=== PATIENT | female | born 1955 | race Caucasian/White ===

== ENCOUNTER → 2016-05-07 | Outpatient (CLI) | payer OTHER ==
--- NOTE | 2016-05-07 12:51 | XR ---
EXAMINATION TYPE: XR knee limited LT DATE OF EXAM: 05/07/2016 12:09 PM COMPARISON: NONE HISTORY: Knee pain TECHNIQUE: 2 view left knee FINDINGS: No acute fracture evident. Knee prosthesis is present. Small joint effusion may be present. IMPRESSION: 1. No acute osseous abnormality in the post knee replacement. 2. Small joint effusion may be present.
== END | disposition home or self-care (01) ==
LOC: RADXRMAIN 11:55
PROVIDERS: ATTEND Nurse Practitioner Adult Health
DX: M25.562 Pain in left knee (principal); Z96.652 Presence of left artificial knee joint

== ENCOUNTER → 2016-11-25 | Outpatient (CLI) | payer OTHER ==
--- NOTE | 2016-11-25 12:34 | MR ---
EXAMINATION TYPE: MR lumbar spine wo con DATE OF EXAM: 11/25/2016 COMPARISON: NONE HISTORY: radiculopathy lsp per order. Low back pain for years per patient. History of back surgery 20 06 per patient. TECHNIQUE: Multiplanar, multisequence imaging of the lumbar spine is performed without IV contrast. FINDINGS: Sagittal images of the lumbar spine show vertebral body heights to appear satisfactory. The re is subtle grade 1 anterolisthesis of L4 on L5. There is artifact from suspected artificial disc ma terial lumbosacral junction which has moderate to advanced narrowing. There is multilevel disc desicc ation with advanced disc space narrowing as well as moderate spurring and heterogeneous increased T1 and T2 signal consistent with Modic type II degenerative changes at L1-L2. Posterior disc herniation at this level as seen on sagittal images. The conus medullaris is normal in position and signal endin g at mid L1 level. Additional mild multilevel anterior spurring in the mid lumbar spine is present. T here is bridging osteophyte anteriorly at lumbosacral junction. Axial images at T12-L1 level shows mild facet degenerative changes otherwise appears within normal li mits. Axial images at L1-L2 level shows moderate broad-based posterior disc protrusion effacing anterior th ecal sac on axial image 23. There is artifact from presumed surgical change in the anterior inferior L1 endplate there is mild facet degenerative changes bilaterally. Bilateral neural foramina are paten t. Axial images at L2-L3 level are felt within normal limits. Axial images at L3-L4 level show mild right greater than left facet degenerative changes. Spinal abdias l is preserved. Bilateral neural foramina are patent. Axial images at L4-L5 level show artifact from left-sided fusion hardware. There is mild to moderate facet degenerative changes and ligamentum flavum hypertrophy with some effacement the posterior later al thecal sac on axial images 7 and 8. There is spondylolisthesis seen. Mild bilateral neural foramin al narrowing is present. Axial images at L5-S1 level show artifact from disc material. There is moderate to advanced facet art hropathy. There is artifact from left-sided fusion hardware. Spinal canal is preserved. Right-sided n eural foramen is patent. Left-sided evaluation is degraded by artifact. No suspicious retroperitoneal findings are seen. IMPRESSION: Postsurgical changes lumbosacral junction noted. There may have been prior surgery at inf erior anterior L1 endplate. There is subtle spondylolisthesis L4-L5. There is multilevel degenerative change most prominent L1-L2 level seen as detailed above.
== END | disposition home or self-care (01) ==
LOC: RADMRIMAIN 11:45
PROVIDERS: ATTEND Family Medicine
DX: M43.16 Spondylolisthesis, lumbar region (principal); M47.26 Other spondylosis with radiculopathy, lumbar region; Z98.890 Other specified postprocedural states
CPT/HCPCS: 72148

== ENCOUNTER → 2017-04-27 | Outpatient (CLI) | payer BC ==
--- NOTE | 2017-04-28 11:18 | MM ---
Reason for exam: screening (asymptomatic). Last mammogram was performed 1 year and 11 months ago. History: Patient is postmenopausal. Physical Findings: A clinical breast exam by your physician is recommended on an annual basis and results should be correlated with mammographic findings. MG Screening Mammo w CAD Bilateral CC and MLO view(s) were taken. Prior study comparison: June 10, 2015, bilateral MG screening mammo w CAD. June 06, 2014, bilateral MG screening mammo w CAD. There are scattered fibroglandular densities. There is no discrete abnormality. No significant changes when compared with prior studies. ASSESSMENT: Negative, BI-RAD 1 RECOMMENDATION: Routine screening mammogram of both breasts in 1 year.
== END | disposition home or self-care (01) ==
LOC: RADMAMWWP 12:01
PROVIDERS: ATTEND Family Medicine
DX: Z12.31 Encounter for screening mammogram for malignant neoplasm of breast (principal)
CPT/HCPCS: 77067

== ENCOUNTER → 2018-03-08 | Outpatient (CLI) | payer BC ==
--- NOTE | 2018-03-08 13:47 | CT ---
EXAMINATION TYPE: CT chest wo con DATE OF EXAM: 03/08/2018 COMPARISON: None HISTORY: Dyspnea. CT DLP: 754 mGycm, Automated exposure control for dose reduction was used. CONTRAST: Performed injected with 0 mL of Isovue 300. TECHNIQUE: Axial images were obtained at 5 mm thick sections. Reconstructed images are reviewed on Bubbli computer in the coronal plane. FINDINGS: Limited Portion of the thyroid visualized is normal. Mild nonspecific infiltrate is at the left apex There is a 0.5 cm density with ill-defined margins in the posterior right upper lobe. Series 4 image 17. Small linear area with spiculated margins is in the posterior right midlung superior segment lowe r lobe. Series 4 image 21. There is an ill-defined area of pneumonitis within the left lower lung fie ld. Series 4 image 23. Ill-defined pneumonitis changes in the posterior left lung. Series 4 image 28. No enlarged mediastinal or hilar adenopathy is evident. The ascending aorta diameter at the level o f the main pulmonary artery is 3.4 cm. The main pulmonary artery diameter at the bifurcation is 2.[address] sections are obtained through the upper abdomen. Abdomen is essentially unremarkable. IMPRESSIONS: 1. There is a 0.5 cm nodular type area within the posterior right lung. Short-term follow-up of this area is recommended with follow-up CT chest in 3 months. 2. Additional scattered areas of increased density which are nonspecific. Infectious etiologies, scar ring, neoplasm could be considered. Follow-up CT chest is recommended.
== END | disposition home or self-care (01) ==
LOC: RADCTMAIN 12:56
PROVIDERS: ATTEND Nurse Practitioner Adult Health
DX: R91.1 Solitary pulmonary nodule (principal); R91.8 Other nonspecific abnormal finding of lung field
CPT/HCPCS: 71250

== ENCOUNTER → 2018-05-04 | Outpatient (CLI) | payer BC ==
--- NOTE | 2018-05-06 08:54 | MM ---
Reason for exam: screening (asymptomatic). Last mammogram was performed 1 year ago. History: Patient is postmenopausal. Physical Findings: A clinical breast exam by your physician is recommended on an annual basis and results should be correlated with mammographic findings. MG Screening Mammo w CAD Bilateral CC and MLO view(s) were taken. Prior study comparison: April 27, 2017, bilateral MG screening mammo w CAD. June 10, 2015, bilateral MG screening mammo w CAD. There are scattered fibroglandular densities. No significant changes when compared with prior studies. ASSESSMENT: Negative, BI-RAD 1 RECOMMENDATION: Routine screening mammogram of both breasts in 1 year.
== END | disposition home or self-care (01) ==
LOC: RADMAMWWP 12:35
PROVIDERS: ATTEND Family Medicine
DX: Z12.31 Encounter for screening mammogram for malignant neoplasm of breast (principal)
CPT/HCPCS: 77067

== ENCOUNTER → 2018-09-27 | Outpatient (CLI) | payer BC ==
--- NOTE | 2018-09-27 12:04 | CONS ---
ABHI Arnold is a pleasant 63-year-old female patient who is a long-time BiPAP user. The patient was diagnosed of having obstructive sleep apnea more than 10 years ago. The last BiPAP titration was done on 10/27/2012 during which the patient was BiPAP titrated to a BiPAP pressure of 9/5 cm of water. Back then she was to weight around 216 pounds. The patient is coming in for reevaluation. Her machine is broken, stops working in the middle of the night and then she tells me that she is unable to go to sleep without her machine. She becomes quite symptomatic and she becomes fragmented while off the BiPAP therapy and she wakes up very tired and sleepy. As such, she is in need for a new machine. She is using a Mirage Quattro full-face mask. She is going to bed around 11 p.m., wakes up between 6 to 7 am in the morning. Her current Bruce Score is at 9, especially as she is unable to fully benefit from her BiPAP treatment. She drinks 2 cups of coffee in the morning. Her weight has been fluctuating, she was as high as 270 at one point, and she has lost some weight. No sleep paralysis. No hallucinations. No cataplexy. She is waking up with dry mouth. PAST MEDICAL HISTORY: 1. Obstructive sleep apnea. 2. Degenerative arthritis. 3. Chronic environmental allergies. 4. Acid reflux. 5. Irritable bladder. PAST SURGICAL HISTORY: Includes right knee replacement, left knee replacement, fusion of the lower lumbar spine, sinus reconstruction surgery and cholecystectomy. DRUG ALLERGIES: To MORPHINE. She has also got multiple allergies to WEEDS, DOGS, GRASS AND BIRCH TREES. SOCIAL HISTORY: Nonsmoker, no evidence alcohol. No history of IV drugs. The patient drinks only 2 caffeinated beverages on a daily basis. The patient also wakes up multiple times now that she is having difficulties with her BiPAP in the middle of the night. She sleeps on her side. She does not take any naps during the day. No history of any motor vehicle accident because of feeling drowsy or sleepy. FAMILY HISTORY: Negative for sleep apnea. REVIEW OF SYSTEMS: A 14-point review of system was done and positive findings are mentioned above in the history of present illness. She is currently experiencing excessive fatigue and sleepiness. She has snoring while off the BiPAP. She has no insomnia, no choking or gasping for air. No restlessness in the lower extremities, no sleepwalking or sleep talking. Her heartburn is well treated. No palpitation, no angina, no cough or sputum production. No anxiety or panic attacks. No sexual dysfunction. Weight has been fluctuating as mentioned above. PHYSICAL EXAMINATION: BP is 149/69, pulse 59, respirations 16, temperature 98.2 saturation 98% on room air. Height is 5, 5, weight is 231. BMI 38.4. Neck size is 17. Bruce Score is at 9. GENERAL APPEARANCE: Calm, comfortable. HEENT: Atraumatic, normocephalic. NECK: Supple. There is no JVD. No goiter or neck masses. Mallampati class 4. LUNGS: Clear to auscultation. HEART: Sounds regular rate and rhythm. Normal S1, S2. No S3, S4. No murmurs. ABDOMEN: Soft, nontender. No organomegaly. EXTREMITIES: No edema. No cyanosis or clubbing. NEUROLOGIC: Alert and oriented x3. No focal neurological deficits. PSYCHIATRIC: Negative for anxiety or depression. SKIN: Negative for any wounds or ulceration. IMPRESSION: 1. Obstructive sleep apnea, symptomatic, based on a malfunctioning BiPAP unit. Her last BiPAP titration was done in 2012. 2. Hypersomnia secondary to above. 3. Obesity with a body mass index of 38.4, up by around 16 pounds since her last evaluation in 2012. 4. Environmental allergies, chronic. 5. Degenerative arthritis. PLAN: 1. Encourage weight loss. 2. Ask the patient to come in for another BiPAP titration, she has failed CPAP therapy in the past. I would be ideal to get her a new BiPAP unit with a new mask interface. I offered her the Air Fit F20 full-face mask for now. 3. Implement good sleep hygiene measures. Will continue to follow. She will see me back after the BiPAP titration to assess her compliancy towards her new machine. MMODL / IJN: [id number] /
== END | disposition home or self-care (01) ==
LOC: SLEEP 09:59
PROVIDERS: ATTEND Internal Medicine Critical Care Medicine
DX: G47.33 Obstructive sleep apnea (adult) (pediatric) (principal); G47.10 Hypersomnia, unspecified; M19.90 Unspecified osteoarthritis, unspecified site; K21.9 Gastro-esophageal reflux disease without esophagitis; N32.89 Other specified disorders of bladder; T78.49XA Other allergy, initial encounter; E66.9 Obesity, unspecified; Z68.38 Body mass index [BMI] 38.0-38.9, adult; Z88.5 Allergy status to narcotic agent; Z99.89 Dependence on other enabling machines and devices
CPT/HCPCS: 99211

== ENCOUNTER → 2018-11-18 | Outpatient (CLI) | payer BC ==
--- NOTE | 2018-11-19 10:25 | CT ---
EXAMINATION TYPE: CT chest wo con DATE OF EXAM: 11/18/2018 COMPARISON: March 08, 2018 HISTORY: lung nodules CT DLP: 549.[address] of the chest was performed with lung and mediastinal window settings submitted. The la ck of contrast limits evaluation of the vascular, mediastinal and parenchymal structures including th e upper abdomen. LUNGS: Nodular groundglass infiltrates noted right upper lobe image 9 of 56 measuring 8.7 mm. Additio nal groundglass areas right upper lobe nonnodular in appearance. Nodular density right lower lobe pos teriorly image 15 measuring 1.3 cm. Groundglass nodular densities left upper lobe measuring 9.7 mm im age 17. Groundglass nodular densities within the region of the left upper lobe lingular segment measu ring up to 1.1 cm and 0.93 mm image 22. Additional area 1.1 cm left lower lobe image 26. These areas were all present previously and do not appear to have progressed. They may reflect areas of postinfla mmatory change. Continued follow-up however is advised six-month follow-up recommended. If felt clini liliam indicated PET/CT could be performed. MEDIASTINUM/MAY: Thoracic aorta is of normal caliber with limited evaluation given lack of contrast . The heart is not enlarged. No evidence for mediastinal mass. No lymph nodes greater than 1cm. UPPER ABDOMEN: No significant abnormality is seen. OTHER: No significant other abnormality. IMPRESSION: 1. Stable bilateral groundglass nodular infiltrates noted which are nonspecific. Continued follow-up is advised. If felt to be clinically indicated PET/CT could be performed.
== END | disposition home or self-care (01) ==
LOC: RADCTMAIN 16:29
PROVIDERS: ATTEND Family Medicine
DX: R91.8 Other nonspecific abnormal finding of lung field (principal)
CPT/HCPCS: 71250

== ENCOUNTER → 2019-02-07 | Outpatient (CLI) | payer BC ==
--- NOTE | 2019-02-07 15:24 | PN ---
PROGRESS NOTE Catalina is 63, coming in for a compliancy check. The patient has a BiPAP unit for symptomatic obstructive sleep apnea and the BiPAP is set at the pressure of 10/6 cm of water. Her main complaint is some increased dryness especially when she wakes up in the morning. She has brought up humidity up to 8 and despite that, she is encountering the same problem. Her temperature of the tubing set at 86 degrees Fahrenheit. Air flow compliancy, the patient remains extremely compliant with an average of 7.3 hours of BiPAP use A 14 per night. Indicated 35 L/minute. I would avoid the 540 rate is 14 with a minute ventilation of 7.5 L/minutes. The station is spontaneous cycling at 9/10. AHI is down 1.4. While on treatment. No complaints of BiPAP use for more than 4 hours is 100%. Current Slade Score is at 7. REVIEW OF SYSTEMS: A 14-point review of system was done. Positive findings are mentioned in history of present illness. No other new complaints otherwise for now. The patient's weight has been fluctuating on and off. No major weight gain or weight loss. No cataplexy, no falls, no head trauma. No anxiety, no depression. No claustrophobia. Her current vital signs are as follows: Her blood pressure is 145/77 pulse 70, respirations 16, temperature is 98.3, saturation 95% on room air. Weight is 240. Height is 5, 5. BMI 39. GENERAL APPEARANCE: Calm, comfortable head is atraumatic, normocephalic. NECK: Supple. No JVD. No goiter. LUNGS: Clear to auscultation. HEART: Heart sounds are regular rate and rhythm. Normal S1, S2. No murmurs. ABDOMEN: Soft, nontender. No organomegaly. EXTREMITIES: No edema. No cyanosis or clubbing. IMPRESSION: 1. Symptomatic obstruction-sleep apnea, currently on a BiPAP pressure of over 6 with excellent clinical response and compliance. 2. Dryness orally and nasally while on BiPAP treatment. 3. Chronic hypersomnia improved. 4. Obesity. 5. Degenerative arthritis. 6. Chronic environmental allergies. \. PLAN: 1. Continue BiPAP at same level of pressure. 2. Keep the humidity at 8. 3. Offer the patient a medium-size Air Fit F20 mask and this will hopefully improve the leak which is in the order of 35 L/minute. 4. If the patient continues to have dryness while on treatment. Will continue to follow. LUIS F / ROMARION: [id number] /
== END | disposition home or self-care (01) ==
LOC: SLEEP 13:20
PROVIDERS: ATTEND Internal Medicine Critical Care Medicine
DX: G47.33 Obstructive sleep apnea (adult) (pediatric) (principal); E66.9 Obesity, unspecified; M19.90 Unspecified osteoarthritis, unspecified site; Z68.39 Body mass index [BMI] 39.0-39.9, adult; J30.2 Other seasonal allergic rhinitis

== ENCOUNTER → 2019-12-01 | Outpatient (CLI) | payer BC ==
[2019-12-01 13:24] LABS: HCT 41.6 % (34.0-46.0); HGB 13.9 gm/dL (11.4-16.0); MCH 31.3 pg (25.0-35.0); MCHC 33.4 g/dL (31.0-37.0); MCV 93.9 fL (80.0-100.0); Platelet Count 193 k/uL (150-450); RBC 4.43 m/uL (3.80-5.40); RDW 12.8 % (11.5-15.5); WBC 7.6 k/uL (3.8-10.6)
[2019-12-01 13:25] LABS: Appearance,Urine Clear (Clear); Bilirubin,Urine Negative (Negative); Blood,Urine Negative (Negative); Color,Urine Light Yellow; Glucose,Urine (UA) Negative (Negative); Ketones,Urine Negative (Negative); Leukocyte Esterase,Urine Negative (Negative); Nitrite,Urine Negative (Negative); Protein,Urine Negative (Negative); Specific Gravity,Urine 1.007 (1.001-1.035); Urobilinogen,Urine <2.0 mg/dL (<2.0)
[2019-12-01 13:37] LABS: ALT 39 U/L (4-34); AST 34 U/L (14-36); African American GFR (CKD) >90 (>60 ml/min/1.73 sqM); Albumin 4.7 g/dL (3.5-5.0); Alkaline Phosphatase 70 U/L (38-126); Anion Gap 3 mmol/L; Blood Urea Nitrogen 14 mg/dL (7-17); Calcium 10.4 mg/dL (8.4-10.2); Carbon Dioxide 31 mmol/L (22-30); Chloride 104 mmol/L (98-107); Glucose 107 mg/dL (74-99); Non-African American GFR(CKD) >90 (>60 ml/min/1.73 sqM); Potassium 4.5 mmol/L (3.5-5.1); Sodium 138 mmol/L (137-145); Total Bilirubin 0.5 mg/dL (0.2-1.3); Total Protein 6.9 g/dL (6.3-8.2)
[2019-12-01 13:40] LABS: INR 0.9 (<1.2); Partial Thromboplastin Time 22.1 sec (22.0-30.0); Prothrombin Time 9.8 sec (9.0-12.0)
== END | disposition home or self-care (01) ==
LOC: LABPAT 12:13
PROVIDERS: ATTEND Orthopaedic Surgery
DX: Z01.818 Encounter for other preprocedural examination (principal); M16.11 Unilateral primary osteoarthritis, right hip; Z01.812 Encounter for preprocedural laboratory examination
CPT/HCPCS: 36415; 80053; 81003; 85027; 85610; 85730; 86850; 86900; 86901; 87070

== ENCOUNTER 2019-12-11 13:58 | Day surgery (SDC) | payer BC ==
[2019-12-06 16:16] VITALS: BMI 41.5
[~2019-12-11 13:58] MED LIST: ACETAMINOPHEN TAB 500 MG TAB PO ONE; DEXAMETHASONE SOD PHOSPHATE 10 MG/ML 1 ML VIAL IV ONE; GABAPENTIN 300 MG CAP PO ONE; HYDROcodone/APAP 5-325MG 1 EACH TAB PO PRN; HYDROmorphone 0.5 MG/0.5 ML SYRINGE IVP PRN; HYDROmorphone 1 MG/ML 1 ML SYRINGE IVP PRN; LACTATED RINGERS 1,000 ML IV SCH; MAGNESIUM HYDROXIDE 2,400 MG/10 ML CUP PO PRN; MELOXICAM 7.5 MG TAB PO ONE; MIDAZOLAM 2 MG/2 ML VIAL IV PRN; NALOXONE 0.4 MG/ML 1 ML VIAL IV PRN; ONDANSETRON 4 MG/2 ML VIAL IVP ONE; ONDANSETRON 4 MG/2 ML VIAL IVP PRN; ROPIVACAINE 246.25 MG, EPINEPHrine 0.5 MG, KETOROLAC 30 MG, cloNIDine HCL/PF 80 MCG, WA... MISCELLANE ONE; SCOPOLAMINE 1.5MG/72HR PATCH TRANSDERM ONE; TRANEXAMIC ACID 1,000 MG in SODIUM CHLORIDE 0.9% 100 ML IVPB ONE; diazePAM 5 MG TAB PO PRN; fentaNYL (PF) 50 MCG/ML 2 ML AMP IVP PRN; hydrOXYzine pamoate 25 MG CAP PO PRN
[2019-12-11] MEDS ORDERED: LIDOCAINE 1% (10MG/ML) FOR IV START INTRADERMA ONE (14:29)
[2019-12-11] MEDS ORDERED: HEPARIN SODIUM,PORCINE 10,000 UNIT/ML 1 ML VIAL ONE (15:01)
[2019-12-11] MEDS ORDERED: SUCCINYLCHOLINE CHLORIDE 100 MG/5 ML SYR IV ONE (15:01)
[2019-12-11] MEDS ORDERED: TRANEXAMIC ACID 1,000 MG/10 ML VIAL ONE (15:01)
[2019-12-11] MEDS ORDERED: HYDROmorphone (PF) 1 MG/ML ONE (15:01)
[2019-12-11] MEDS ORDERED: SODIUM CHLORIDE 0.9% 100 ML BAG ONE (15:01)
[2019-12-11] MEDS ORDERED: PROPOFOL 10 MG/ML 20 ML VIAL IV ONE (15:01)
[2019-12-11] MEDS ORDERED: fentaNYL (PF) 50 MCG/ML 2 ML AMP ONE (15:01)
[2019-12-11] MEDS ORDERED: MIDAZOLAM 2 MG/2 ML VIAL ONE (15:01)
[2019-12-11] MEDS ORDERED: LIDOCAINE 1% INJ 10MG/ML (20 ML MDV) ONE (15:01)
[2019-12-11] MEDS ORDERED: SODIUM CHLORIDE 0.9% IRRIG 1,000 ML BTL IRRIGATION ONE (15:01)
--- NOTE | 2019-12-11 16:17 | P.OP ---
Date of Procedure: 12/11/19 Preoperative Diagnosis: Severe osteoarthritis right hip Postoperative Diagnosis: Severe osteoarthritis right hip Procedure(s) Performed: Right total hip arthroplasty with a direct anterior approach Implants: [employer] nephew Polarstem size 6 standard [employer]hew R3, 3 hole acetabular shell, 52 mm [employer]hew reflection 6.5 mm cancellus screw, 20 mm 2 [employer] R3, XLPE 20 acetabular liner [employer]hew Oxinium femoral head 36 m, +4 All components were press-fit. The articulation is Oxinium on polyethylene. Anesthesia: GETA Surgeon: Jake Coronado Seconds Grader #1: Ursula Murdock Estimated Blood Loss (ml): 500 (212 mL returned with Cell Saver) Pathology: other (Femoral head) Condition: stable Disposition: PACU Indications for Procedure: After failure of conservative treatment we discussed the surgical and nonsurgical treatment options at length. Patient wishes to proceed with a total hip arthroplasty with a direct anterior approach. Complications specific to this procedure were discussed at length, including but not limited to infection, leg length discrepancy, dislocation, and nerve injury. Covid-19 was also discussed at length with the patient, and they are aware of the current policies and procedures. The patient was given the option of delaying surgery, but they elect to proceed knowing these risks. Patient is aware of all these complications and informed consent was obtained Operative Findings: The operative findings are consistent with severe osteoarthritis of the right hip Description of Procedure: Patient was seen and evaluated in the preoperative area, consent was reviewed, and the surgical site was marked with a skin marker. Patient was then brought to the operating room and given prophylactic antibiotics intravenously. 1 g of Tranexamic acid was also given. A general anesthetic was administered by the anesthesia department. The patient was then placed on the [place] table with the bony prominences well-padded. The hip area was then prepped and draped in usual sterile fashion. A universal timeout was then performed, which confirmed the patient's name, surgical site, ALLERGIES, and procedure being performed. Next the incision site was located at 1 cm distal and 1 cm lateral to the anterior superior iliac spine. The skin and subcutaneous tissues were sharply incised. Incision was carefully dissected down to the fascia overlying the tensor fascia kd muscle. This fascia was then incised in line with the incision. Next, using blunt finger dissection, the tensor fascia kd muscle was dissected off its investing fascia. The muscle was then carefully retracted laterally with a cobra retractor over the lateral neck of the femur. Next, the circumflex vessels were identified and cauterized using the AquaMantis device. The anterior hip capsule was then exposed. The capsule was then opened and an inverted T fashion. Cobra retractors were then placed intracapsularly. The proximal femur was then visualized. The femoral neck was then osteotomized appropriate level above the lesser trochanter. Small amount of traction was placed with the [place] table. A small wedge of bone was then removed from the remaining femoral head. Next, using a corkscrew femoral head was easily removed from the acetabulum. On gross visual inspection, the femoral head had complete loss of articular cartilage in multiple periarticular osteophytes. Attention was then turned to the acetabulum. the acetabulum was exposed and any remaining labrum was excised. Sequential reaming of the acetabulum was performed using fluoroscopic guidance. When the appropriate size was reached, a trial was then placed. The position and fit of the trial was checked with fluoroscopy. The trial was then removed. Then, using fluoroscopic guidance, the final implant was impacted at 20 of anteversion and 40 of abduction, and fully seated in the acetabulum. 2 screws were then placed in the acetabulum. Again fluoroscopy was used to check position of the screws. Next, the liner was then impacted, with a 20 elevated liner located in the anterior superior quadrant. Component locking was confirmed. Attention was then directed to the femur. With the aid of the [place] table, the femur was externally rotated to approximately 130, extended, and abducted under the opposite leg. A side hook was then placed under the proximal femur, and the side hook elevator was used to elevate the proximal femur. Retractors were then placed. A capsular release was performed, as well as a release of the conjoined tendon, which afforded excellent visualization of the proximal femur. Next, a box osteotome was used to lateralize the proximal femur. A stablehand was then used to locate the femoral canal. Sequential broaching was then performed with appropriate size which afforded excellent fixation in the proximal femur. A trial was then placed with appropriate head and neck, and the hip was gently reduced with the aid of the [place] table. Fluoroscopy was then used to check position of the components, as well as to ensure equal leg lengths. The hip was then gently dislocated and the trials were then removed. Final implants were then impacted and the hip was again reduced. Final fluoroscopic x-rays confirmed that the components were in anatomic position, as well as equal leg lengths. The hip was also taken through range of motion, and found to be stable. The hip was then copiously irrigated with antibiotic solution with pulsatile lavage. The hip was then irrigated with Irrisept solution. The soft tissues were then injected with a ropivacaine solution, which consisted of 246.25 mg of ropivacaine, 0.5 mg of epinephrine, 30 mg of Toradol, 80 g of clonidine, and 48.45 mL of sterile water, for a total of 100 mL of fluid injected. A second dose of 1 g of Tranexamic acid was also given. the fascia was then closed with 2-0 strata fix suture. The subcutaneous tissue was closed with 3-0 Vicryl. The subcuticular tissue was closed with 3-0 strata fix suture. The skin was then closed with Dermabond glue and a sterile silver dressing. The patient was then transferred to the recovery room in stable condition. The radiology assistant CASEY Loredo was required due to the complexity of surgery, and the need for skilled surgical supervisor for positioning, draping, exposure, retraction, and closure of the wound.
[2019-12-11] MEDS: HYDROmorphone 0.5 MG/0.5 ML SYRINGE IVP PRN ×3 (17:00→17:06)
--- NOTE | 2019-12-11 17:06 | XR ---
EXAMINATION TYPE: XR Hip Limited RT DATE OF EXAM: 12/11/2019 COMPARISON: 03/17/2011 HISTORY: Postop TECHNIQUE: Single view FINDINGS: There is a right hip prosthesis. Components appear in anatomic position. IMPRESSION: No complicating process seen.
[2019-12-11] MEDS ORDERED: fentaNYL (PF) 50 MCG/ML 2 ML AMP IVP ONE (17:25)
[2019-12-11] MEDS: SODIUM CHLORIDE 0.9% 1,000 ML IV SCH (17:40)
[2019-12-11] MEDS ORDERED: diphenhydrAMINE 50 MG/ML 1 ML VIAL IVP ONE (17:48)
[2019-12-11] MEDS ORDERED: LACTATED RINGERS 1,000 ML IV ONE (18:08)
[2019-12-11] MEDS: ASPIRIN 325 MG TAB PO SCH (20:01)
[2019-12-11] MEDS ORDERED: SENNOSIDES-DOCUSATE SODIUM 1 EACH TAB PO SCH (21:00)
[2019-12-11] MEDS: HYDROcodone/APAP 5-325MG 1 EACH TAB PO PRN (22:50)
--- NOTE | 2019-12-12 03:47 | P.CONS ---
History of Present Illness - Reason for Consult Consult date: 12/11/19 - History of Present Illness Patient is a 64-year-old female with a PMH of GERD and right hip OA who was admitted to the hospital for scheduled right total hip arthroplasty which she underwent earlier today. The patient was seen postoperatively on the surgical unit. She reported pain that was improved from a few hours earlier, currently at a 2 out of 10. She has been up and out of bed and has used the restroom and has been passing urine. She has not had a bowel movement or flatus as of yet. She denied any additional complaints. She denied sore throat, chest pain, shortness of breath. Denied weakness, numbness, tingling. Denied cough, fever, chills. Reports compliance with medications at home. Review of Systems Pertinent positives and negatives as discussed in HPI, a complete review of systems was performed and all other systems are negative. Past Medical History Past Medical History: GERD/Reflux, Osteoarthritis (OA), Pneumonia, Sleep Apnea/CPAP/BIPAP Additional Past Medical History / Comment(s): BIPAP use. History of Any Multi-Drug Resistant Organisms: None Reported Past Surgical History: Back Surgery, Cholecystectomy, Joint Replacement Additional Past Surgical History / Comment(s): Sinus surgery, low back fusion, bilateral knee replacements. Past Anesthesia/Blood Transfusion Reactions: Previous Problems w/ Anesthesia Additional Past Anesthesia/Blood Transfusion Reaction / Comm: Slow to wake up X1. Past Psychological History: No Psychological Hx Reported Smoking Status: Former smoker Past Alcohol Use History: Occasional Additional Past Alcohol Use History / Comment(s): Quit smoking in 2000. Past Drug Use History: None Reported - Past Family History Mother Family Medical History: Cancer, CVA/TIA Additional Family Medical History / Comment(s): Bladder cancer. Brother(s) Family Medical History: Cancer Additional Family Medical History / Comment(s): Prostate Cancer. Medications and Allergies Home Medications Medication Instructions Recorded Confirmed Type Albuterol Inhaler [Ventolin Hfa 1 - 2 puff INHALATION DIRECTED 12/06/19 12/06/19 History Inhaler] PRN Cetirizine HCl 10 mg PO DAILY 12/06/19 12/06/19 History Omeprazole 20 mg PO AC-BRKFST 12/06/19 12/06/19 History Oxybutynin Chloride [Ditropan XL] 10 mg PO DAILY 12/06/19 12/06/19 History Diclofenac Sodium [Voltaren] 75 mg PO BID 12/11/19 12/11/19 History Allergies Allergy/AdvReac Type Severity Reaction Status Date / Time morphine Allergy Itching Verified 12/11/19 14:19 Physical Exam Vitals: Vital Signs Temp Pulse Pulse Resp BP BP Pulse Ox 12/11/19 20:00 79 20 12/11/19 19:00 98.5 F 79 20 118/72 12/11/19 18:19 97.8 F 76 18 109/72 98 12/11/19 17:50 81 18 110/57 94 L 12/11/19 17:35 87 16 115/59 94 L 12/11/19 17:20 80 18 125/59 95 12/11/19 17:05 81 18 125/59 95 12/11/19 16:50 75 16 122/68 96 12/11/19 16:39 98.6 F 18 L 18 112/59 93 L 12/11/19 14:15 97.8 F 77 16 167/83 95 Intake and Output 12/11/19 12/11/19 12/12/19 14:59 22:59 06:59 Intake Total 100 950 Output Total 500 Balance 100 450 Intake: IV 100 950 Output: Estimated Blood Loss 500 Other: Voiding Method Toilet Weight 113 kg 113 kg General: non toxic, no distress, appears at stated age, morbidly obese Derm: no unusual rashes/lesions no unusual ecchymoses, warm, dry Head: atraumatic, normocephalic, symmetric Eyes: EOMI, no lid lag, anicteric sclera, pupils equal round reactive to light ENT: Nose and ears atraumatic, no thrush, no pharyngeal erythema Neck: No thyromegaly, no cervical lymphadenopathy, trachea midline, supple Mouth: no lip lesion, mucus membranes moist Cardiovascular: S1S2 reg, no murmur, positive posterior tibial pulse bilateral, no edema, capillary refill less than 2 seconds Lungs: CTA bilateral, no rhonchi, no rales , no accessory muscle use Abdominal: soft, nontender to palpation, no guarding, no appreciable organom egaly, normal bowel sounds Ext: no gross muscle atrophy, muscle strength 5 out of 5 in all extremities grossly except the right lower extremity due to pain postoperatively, no contractures, right anterior hip dressing clean and dry Neuro: CN II-XI grossly intact, light touch intact all 4 extremities, finger to nose within normal limits, Psych: Alert, oriented, appropriate affect Assessment and Plan Plan: GERD -Continue with PPI Status post right total hip arthroplasty -Management including pain control as per the surgery service We appreciate this opportunity to be involved in this patient's care. We will follow the patient with you. For any further questions, please not hesitate to contact the sound inpatient team.
[2019-12-12] MEDS: SODIUM CHLORIDE 0.9% 1,000 ML IV SCH (04:27)
[2019-12-12 04:44] VITALS: RESP 17
[2019-12-12] MEDS: HYDROcodone/APAP 5-325MG 1 EACH TAB PO PRN (05:41)
[2019-12-12 06:37] LABS: Basophils % (A) 0 %; Eosinophils % (A) 0 %; HCT 36.9 % (34.0-46.0); HGB 12.4 gm/dL (11.4-16.0); Lymphocytes # (A) 1.4 k/uL (1.0-4.8); Lymphocytes % (A) 10 %; MCH 32.6 pg (25.0-35.0); MCHC 33.5 g/dL (31.0-37.0); MCV 97.1 fL (80.0-100.0); Mean Platelet Volume 8.6; Monocytes # (A) 0.9 k/uL (0-1.0); Monocytes % (A) 6 %; Neutrophils # (A) 11.5 k/uL (1.3-7.7); Neutrophils % (A) 83 %; Platelet Count 203 k/uL (150-450); RDW 12.8 % (11.5-15.5); WBC 13.9 k/uL (3.8-10.6)
[2019-12-12] MEDS ORDERED: HYDROcodone/APAP 7.5-325MG 1 EACH TAB PO PRN ×2 (06:59)
--- NOTE | 2019-12-12 07:04 | P.DS ---
Providers Expected date of discharge: 12/12/19 Attending physician: Jake Coronado Consults: 12/11/19 12:14 Consult Physician Routine Consulting Provider: Alina Dimas Consult Reason/Comments: medical management Do you want consulting provider notified?: Yes Primary care physician: Hussein Garnett - Discharge Diagnosis(es) (1) Osteoarthritis of right hip Current Visit: Yes Status: Acute (2) S/P total hip arthroplasty Current Visit: Yes Status: Acute Hospital Course: This is a 64-year-old female with known history of degenerative arthritis of the right hip. The patient presents for evaluation. After discussion and consideration patient elects to proceed with total hip arthroplasty. The patient is seen preoperatively by Dr. Coronado and medically cleared for surgery by their primary care physician. Patient is admitted to [facility] on 12/11/2019 for total hip arthroplasty. The procedures performed without complication or sequelae. The patient is doing well postoperatively. Labs and vital signs are stable on day of discharge. On day of discharge patient's hip incision is healing well. There is minimal erythema. There is no drainage noted at this time. There is minimal soft tissue swelling to the hip and thigh. Patient has full foot and ankle motion without difficulty or pain. Calf is soft and nontender to palpation. Neurovascular status to the right lower extremity is intact. Patient is discharged home in good condition. Opioid start talking form is reviewed and signed. Please see [facility] rec for accurate list of home medications. Plan - Discharge Summary Discharge Rx Participant: Yes New Discharge Prescriptions: New Aspirin 325 mg PO BID #60 tab HYDROcodone/APAP 7.5-325MG [Anton 7.5-325] 1 - 2 tab PO Q6H PRN #32 tab PRN Reason: Pain Sennosides [Senokot] 2 tab PO DAILY PRN #60 tablet PRN Reason: Constipation Ondansetron Odt [Zofran Odt] 1 tab PO Q8HR PRN #15 tab PRN Reason: Nausea No Action Oxybutynin Chloride [Ditropan XL] 10 mg PO DAILY Omeprazole 20 mg PO AC-BRKFST Cetirizine HCl 10 mg PO DAILY Albuterol Inhaler [Ventolin Hfa Inhaler] 1 - 2 puff INHALATION DIRECTED PRN PRN Reason: Shortness Of Breath Diclofenac Sodium [Voltaren] 75 mg PO BID Discharge Medication List Albuterol Inhaler [Ventolin Hfa Inhaler] 1 - 2 puff INHALATION DIRECTED PRN 12/06/19 [History] Cetirizine HCl 10 mg PO DAILY 12/06/19 [History] Omeprazole 20 mg PO AC-BRKFST 12/06/19 [History] Oxybutynin Chloride [Ditropan XL] 10 mg PO DAILY 12/06/19 [History] Diclofenac Sodium [Voltaren] 75 mg PO BID 12/11/19 [History] Aspirin 325 mg PO BID #60 tab 12/12/19 [Rx] HYDROcodone/APAP 7.5-325MG [Anton 7.5-325] 1 - 2 tab PO Q6H PRN #32 tab 12/12/19 [Rx] Ondansetron Odt [Zofran Odt] 1 tab PO Q8HR PRN #15 tab 12/12/19 [Rx] Sennosides [Senokot] 2 tab PO DAILY PRN #60 tablet 12/12/19 [Rx] Follow up Appointment(s)/Referral(s): Jake Coronado DO [Doctor of Osteopathic Medicine] - 2 Weeks Activity/Diet/Wound Care/Special Instructions: Weightbearing as tolerated with walker. Leave dressing intact. Dressing may be removed by home care nurse or by patient in 10 days. May shower with dressing on. Please take aspirin 325mg twice daily for 30 days to prevent blood clots. Recommend use of compression stockings daily until follow up to help prevent swelling and blood clots. May remove at night before sleeping. Please follow-up with [facility] in 2 weeks and call with any questions or concerns, . Discharge Disposition: HOME WITH HOME HEALTH SERVICES
[2019-12-12] MEDS ORDERED: PANTOPRAZOLE 40 MG TABLET PO SCH (07:30)
[2019-12-12] MEDS: ASPIRIN 325 MG TAB PO SCH (08:02)
[2019-12-12 08:36] VITALS: BP 130/77; PULSE 70; TEMP 98.2
[2019-12-12] MEDS ORDERED: LORATADINE 10 MG TAB PO SCH (09:00)
[2019-12-12] MEDS ORDERED: MELOXICAM 7.5 MG TAB PO SCH (09:00)
[2019-12-12] MEDS ORDERED: OXYBUTYNIN 10 MG TAB.ER.24 PO SCH (09:00)
--- NOTE | 2019-12-12 09:24 | XR ---
Fluoroscopy INDICATION: Pain FINDINGS: Fluoroscopy time: 49 seconds. Images obtained: 2. IMPRESSIONS: 1. Documentation of fluoroscopy.
--- NOTE | 2019-12-12 13:42 | P.PN ---
Subjective Progress Note Date: 12/12/19 Principal diagnosis: CC: Status post right total hip arthroplasty patient is morning has been discharged by the orthopedic service. She is looking forward to going home. She denies any acute complaints. I told patient is stable for discharge from a medical standpoint. Objective - Vital Signs Vital signs: Vital Signs Temp 98.2 F 12/12/19 07:00 Pulse 70 12/12/19 07:00 Resp 17 12/12/19 03:00 BP 130/77 12/12/19 07:00 Pulse Ox 96 12/12/19 07:00 Intake & Output 12/11/19 12/12/19 12/12/19 18:59 06:59 18:59 Intake Total 1050 300 Output Total 500 Balance 550 300 Weight 113 kg 113 kg Intake: IV 1050 Oral 300 Output: Estimated Blood Loss 500 Other: Voiding Method Toilet # Voids 1 # Emes[place] 1 - Exam General examination - Alert and Oriented 3 in NAD Heart - + S1S2 no murmurs Lungs - Clear to auscultation Abdomen soft NT ND +ve BS Extremities - No edema PHOTOGRAPHER PORTRAIT - Moving all 4 extremities spontaneously Psych - Calm and cooperative - Labs CBC & Chem 7: 12/12/19 05:49 Labs: Abnormal Lab Results - Last 24 Hours (Table) 12/12/19 Range/Units 05:49 WBC 13.9 H (3.8-10.6) k/uL Neutrophils # 11.5 H (1.3-7.7) k/uL Assessment and Plan Assessment: GERD -Continue with PPI Status post right total hip arthroplasty -Management including pain control as per the surgery service patient is stable for discharge from a medical standpoint
== END 2019-12-12 13:20 | disposition home health service (06) ==
LOC: OR 13:58 → 4SSUR 14:32 → OR 12-12 13:20
PROVIDERS: ATTEND Orthopaedic Surgery
DX: M16.11 Unilateral primary osteoarthritis, right hip (principal); G47.33 Obstructive sleep apnea (adult) (pediatric); K21.9 Gastro-esophageal reflux disease without esophagitis; Z79.899 Other long term (current) drug therapy; Z98.1 Arthrodesis status; Z88.5 Allergy status to narcotic agent; Z99.89 Dependence on other enabling machines and devices; Z96.653 Presence of artificial knee joint, bilateral; Z97.3 Presence of spectacles and contact lenses; Z91.09 Other allergy status, other than to drugs and biological substances; Z90.49 Acquired absence of other specified parts of digestive tract; Z98.890 Other specified postprocedural states; Z87.891 Personal history of nicotine dependence; Z82.49 Family history of ischemic heart disease and other diseases of the circulatory system; Z80.42 Family history of malignant neoplasm of prostate; Z80.52 Family history of malignant neoplasm of bladder; Z82.3 Family history of stroke; Z82.62 Family history of osteoporosis
CPT/HCPCS: 97161; 97165; 86891; 85025; 88300; 73501 ×2; 27130; C1776; J2250; J0171; J1200; J1644; J1100; J0690 ×2; J2405 ×2; J2001; J3010; J1885; J1170 ×3; J2795; J0330; J2704; J0735; 86850; 86900; 86901

== ENCOUNTER → 2020-06-13 | Outpatient (CLI) | payer BC ==
--- NOTE | 2020-06-17 11:57 | MM ---
Reason for exam: screening (asymptomatic). Last mammogram was performed 2 years and 1 month ago. History: Patient is postmenopausal. Physical Findings: A clinical breast exam by your physician is recommended on an annual basis and results should be correlated with mammographic findings. MG 3D Screening Mammo W/Cad Bilateral CC and MLO view(s) were taken. Prior study comparison: May 04, 2018, bilateral MG screening mammo w CAD. April 27, 2017, bilateral MG screening mammo w CAD. There are scattered fibroglandular densities. No significant changes when compared with prior studies. ASSESSMENT: Benign, BI-RAD 2 RECOMMENDATION: Routine screening mammogram of both breasts in 1 year.
== END | disposition home or self-care (01) ==
LOC: RADMAMWWP 08:49
PROVIDERS: ATTEND Family Medicine
DX: Z12.31 Encounter for screening mammogram for malignant neoplasm of breast (principal); Z78.0 Asymptomatic menopausal state
CPT/HCPCS: 77063; 77067

== ENCOUNTER → 2020-10-29 | Outpatient (CLI) | payer BC ==
--- NOTE | 2020-10-29 17:31 | PN ---
PROGRESS NOTE Catalina is doing well. She is coming in for a followup regarding obstructive sleep apnea. Over the past two years she has gained around 24 pounds. She underwent a hip replacement surgery and following Covid she was inactive and she ended up gaining a significant amount of weight. Despite all this, she continues to be successfully treated with BiPAP at a pressure of 10/6 cm of water. Treatment has been successful. No snoring while on CPAP treatment. No major hypersomnia or sleepiness during the day. Thirty-day compliancy was done and the data was adequate. Note that data did not reflect her adequate use, as the patient was on a boat and she did not take her machine recently, and that is why we are seeing at least 7 days of no data collecting in her CPAP machine. On average, she is using the machine around 7.4 hours per night. Her leak was 11 L/minute and her AHI while on treatment is down to 3.0. She is using a medium-sized AirFit F30 full-face mask. No other significant complaints. She wants her supplies to be refilled and she wants to switch her company to [employer]. REVIEW OF SYSTEMS: Fourteen-point review of system was done. Positive findings are all mentioned in history of present illness. It is positive for a significant amount of weight gain on the order of 24 pounds. No sleep paralysis. No hallucinations. No cataplexy. No myocardial infarction. No congestive heart failure. No stroke. PHYSICAL EXAMINATION: VITAL SIGNS: BP is 158/52, pulse 79, respiratory rate 16, temperature 97.6, saturation 96% on room air. Height is 5 feet 6 inches. Weight is 264. [place] score is 4. BMI is 42.2. GENERAL APPEARANCE: Calm, comfortable. HEAD: Atraumatic, normocephalic. NECK: Supple. No JVD. No goiter or neck masses. LUNGS: Diminished. Otherwise clear. HEART: Heart sounds are regular rate and rhythm. Normal S1, S2. No S3, S4. No murmurs. ABDOMEN: Soft, nontender. No organomegaly. EXTREMITIES: No edema. No cyanosis or clubbing. IMPRESSION: 1. Obstructive sleep apnea, currently on BiPAP at a pressure of 10/6 and treatment continues to be successful. The patient has been adequately treated with BiPAP. 2. Obesity with interval weight gain of 24 pounds. Current weight is up to 264 and her BMI is 42.4. 3. Hypersomnia, improved. [place] score is down to 4. 4. Degenerative arthritis. 5. Recent hip surgery/replacement. 6. Chronic environmental allergies. PLAN: 1. Proceed with renewing her CPAP supplies. 2. Keep same pressures. 3. Encourage weight loss. 4. See me back in followup in a few years' time. MMODL / IJN: [id number] /
== END ==
LOC: SLEEP 15:38
PROVIDERS: ATTEND Internal Medicine Critical Care Medicine
DX: G47.33 Obstructive sleep apnea (adult) (pediatric) (principal); E66.9 Obesity, unspecified; M19.90 Unspecified osteoarthritis, unspecified site; Z68.41 Body mass index [BMI] 40.0-44.9, adult; Z96.641 Presence of right artificial hip joint; J30.2 Other seasonal allergic rhinitis; Z99.89 Dependence on other enabling machines and devices; Z88.5 Allergy status to narcotic agent

== ENCOUNTER → 2021-01-14 | Outpatient (CLI) | payer BC ==
--- NOTE | 2021-01-14 09:04 | CT ---
EXAMINATION TYPE: CT chest wo con DATE OF EXAM: 01/14/2021 COMPARISON: 11/18/2018 HISTORY: Solitary lung nodule CT DLP: 616.4 mGycm. Automated Exposure Control for Dose Reduction was Utilized. TECHNIQUE: CT scan of the thorax is performed without IV contrast. FINDINGS: LUNGS: There are persistent nodular areas of abnormal attenuation scattered bilaterally throughout th e lung stable in size relative to the prior exam the largest area measuring 1.1 cm in the lingular se gment left upper lobe. No significant interval change. No pleural effusion or pneumothorax.. MEDIASTINUM: Lack of IV contrast is noted to limit evaluation for mediastinal and especially hilar ad enopathy. There are no definitive greater than 1 cm hilar or mediastinal lymph nodes. No cardiomega ly or pericardial effusion is seen. Atherosclerotic change aorta. Were small hiatal hernia. OTHER: Postcholecystectomy changes noted. Hypertrophic and degenerative changes spine. IMPRESSION: 1. There are stable nodular bilateral areas of infiltrate or nodularity unchanged from prior exam lik amy request is although likely postinflammatory neoplastic process not excluded consider follow-up PE T scan.
== END | disposition home or self-care (01) ==
LOC: RADCTMAIN 08:23
PROVIDERS: ATTEND Family Medicine
DX: R91.8 Other nonspecific abnormal finding of lung field (principal)
CPT/HCPCS: 71250

== ENCOUNTER → 2021-09-05 | Outpatient (CLI) | payer MEDICARE, BC ==
--- NOTE | 2021-09-05 15:18 | CT ---
EXAMINATION TYPE: CT angio chest DATE OF EXAM: 09/05/2021 COMPARISON: 01/14/2021 HISTORY: 66-year-old female R79.1, SOB and elevated D-Dimer TECHNIQUE: Contiguous axial scanning of the chest performed with IV Contrast, patient injected with 6 3 mL of Isovue 370. Coronal/sagittal MIP reconstructions performed. CT DLP: 593.10 mGycm Automated exposure control for dose reduction was used. FINDINGS: Heart is normal size without pericardial effusion. Aorta normal caliber with bovine configuration to the aortic arch. A borderline size 1.0 cm low right paratracheal lymph node is nonspecific, likely reactive. Otherwise , no thoracic lymphadenopathy by CT size criteria. Mildly enlarged caliber to the main right and left arteries at 2.7 and 2.5 cm, respectively, suggesti ng underlying pulmonary hypertension. There is borderline optimal contrast opacification of pulmonary arterial system. No pulmonary embolus is seen. Multifocal patchy peripheral and peribronchial bronchiolar groundglass densities. Mild mosaic attenua tion. Minimal emphysematous change. No paulo consolidation or pleural effusion. There is a small hiatal hernia. Marked low attenuation of the hepatic parenchyma. Cholecystectomy cli ps. Bones: No osseous destructive process. IMPRESSION: 1. BORDERLINE OPTIMAL CONTRAST BOLUS. No definite pulmonary embolus. 2. A few scattered interstitial and patchy densities/infiltrates. We note that these were present on the 01/14/2021 exam suggesting chronic scarring rather than acute infiltrates. Annual surveillance is recommended. 3. Possible underlying pulmonary arterial hypertension. 4. Small hiatal hernia and severe hepatic steatosis. Correlate with LFTs, lipid profile, and patient risk factors.
== END | disposition home or self-care (01) ==
LOC: RADCTMAIN 14:23
PROVIDERS: ATTEND Family Medicine
DX: K76.0 Fatty (change of) liver, not elsewhere classified (principal); K44.9 Diaphragmatic hernia without obstruction or gangrene
CPT/HCPCS: 71275; Q9967

== ENCOUNTER → 2021-09-17 | Outpatient (CLI) | payer MEDICARE, BC ==
--- NOTE | 2021-09-18 08:54 | CA ---
Transthoracic Echo Report Name: Catalina Arita Age: 66 Gender: F : 1955 Exam Date: 09/17/2021 14:43 Exam Location: [facility] Ht (in): 65 Wt (lb): 277 Ordering Physician: Hussein Garnett MD Attending/Referring Phys: [id number], Mariola Associate Professor Of Theatre Dayanna Coleman, RDLESLI Procedure CPT: Indications: R06.00 DYSPNEA, UNSPECIFIED Cardiac Hx: Technical Quality: Fair Contrast 1: Total Dose (mL): Contrast 2: Total Dose (mL): MEASUREMENTS (Male / Female) Normal Values 2D ECHO LV Diastolic Diameter PLAX 4.7 cm 4.2 - 5.9 / 3.9 - 5.3 cm LV Systolic Diameter PLAX 3.1 cm IVS Diastolic Thickness 1.1 cm 0.6 - 1.0 / 0.6 - 0.9 cm LVPW Diastolic Thickness 1.1 cm 0.6 - 1.0 / 0.6 - 0.9 cm LV Relative Wall Thickness 0.5 RV Internal Dim ED PLAX 3.3 cm LA Systolic Diameter LX 4.1 cm 3.0 - 4.0 / 2.7 - 3.8 cm LA Volume 65.9 cm??? 18 - 58 / 22 - 52 cm??? M-MODE Aortic Root Diameter MM 3.3 cm MV E Point Septal Separation 0.5 cm AV Cusp Separation MM 2.1 cm DOPPLER AV Peak Velocity 232.0 cm/s AV Peak Gradient 21.5 mmHg AV Mean Velocity 156.9 cm/s AV Mean Gradient 11.2 mmHg AV Velocity Time Integral 42.4 cm LVOT Peak Velocity 129.1 cm/s LVOT Peak Gradient 6.7 mmHg MV Area PHT 3.1 cm??? Mitral E Point Velocity 97.9 cm/s Mitral A Point Velocity 97.1 cm/s Mitral E to A Ratio 1.0 MV Deceleration Time 243.2 ms MV E' Velocity 5.1 cm/s Mitral E to MV E' Ratio 19.2 TR Peak Velocity 247.2 cm/s TR Peak Gradient 24.4 mmHg Right Ventricular Systolic Press 29.1 mmHg FINDINGS Left Ventricle Left ventricular ejection fraction is estimated at 55-60 %. Mildly increased septal wall thickness. Mildly increased posterior wall thickness. Right Ventricle Mild right ventricular dilatation. Right ventricular systolic pressure within normal limits. Right Atrium Normal right atrial size. Left Atrium Mildly increased left atrial diameter. Moderately increased left atrial volume. Mildly increased left atrial area. Mitral Valve Mitral annular calcification. No mitral regurgitation Aortic Valve Trileaflet aortic valve. No aortic valve stenosis or regurgitation. Tricuspid Valve Mild tricuspid regurgitation. Pulmonic Valve Structurally normal pulmonic valve. Pericardium Normal pericardium. No pericardial effusion. Aorta Normal size aortic root and proximal ascending aorta. CONCLUSIONS Left ventricular ejection fraction 55-60% Mild LVH No mitral regurgitation Mild to moderately dilated left atrium Mild tricuspid regurgitation No pericardial effusion Previewed by: Dr. John Daley DO (Electronically Signed) Final Date: 18 September 2021 08:53
== END | disposition home or self-care (01) ==
LOC: RADECHMAIN 14:24
PROVIDERS: ATTEND Family Medicine
DX: I07.1 Rheumatic tricuspid insufficiency (principal)
CPT/HCPCS: 93306

== ENCOUNTER → 2021-10-07 | Outpatient (CLI) | payer MEDICARE, BC ==
--- NOTE | 2021-10-08 08:44 | MM ---
Reason for Exam: Screening (asymptomatic). Last mammogram was performed 1 year(s) and 4 month(s) ago. Patient History: Menarche at age 14. First Full-Term at age 17. Postmenopausal. Risk Values: Haydee 5 year model risk: 1.2%. NCI Lifetime model risk: 4.6%. Prior Study Comparison: 04/30/2011 Screening Mammogram, [facility]. 06/01/2013 Bilateral Screening Mammogram, [facility]. 06/06/2014 Bilateral Screening Mammogram, [facility]. 06/10/2015 Bilateral Screening Mammogram, [facility]. 04/27/2017 Bilateral Screening Mammogram, [facility]. 05/04/2018 Bilateral Screening Mammogram, [facility]. 06/13/2020 Bilateral Screening Mammogram, [facility]. Tissue Density: There are scattered fibroglandular densities. Findings: Analyzed By CAD. There is no suspicious group of microcalcifications or new suspicious mass in either breast. No significant change from prior exams. Overall Assessment: Negative, BI-RAD 1 Management: Screening Mammogram of both breasts in 1 year. A clinical breast exam by your physician is recommended on an annual basis and results should be correlated with mammographic findings. Electronically signed and approved by: Santiago Walker D.O.
== END | disposition home or self-care (01) ==
LOC: RADMAMWWP 13:09
PROVIDERS: ATTEND Family Medicine
DX: Z12.31 Encounter for screening mammogram for malignant neoplasm of breast (principal); Z78.0 Asymptomatic menopausal state
CPT/HCPCS: 77063; 77067

== ENCOUNTER 2021-11-28 08:29 | Day surgery (SDC) | payer MEDICARE, BC ==
[~2021-11-28 08:29] MED LIST changes: -ACETAMINOPHEN TAB 500 MG TAB PO ONE; -DEXAMETHASONE SOD PHOSPHATE 10 MG/ML 1 ML VIAL IV ONE; -GABAPENTIN 300 MG CAP PO ONE; -HYDROcodone/APAP 5-325MG 1 EACH TAB PO PRN; -HYDROmorphone 0.5 MG/0.5 ML SYRINGE IVP PRN; -HYDROmorphone 1 MG/ML 1 ML SYRINGE IVP PRN; -MAGNESIUM HYDROXIDE 2,400 MG/10 ML CUP PO PRN; -MELOXICAM 7.5 MG TAB PO ONE; -MIDAZOLAM 2 MG/2 ML VIAL IV PRN; -NALOXONE 0.4 MG/ML 1 ML VIAL IV PRN; -ONDANSETRON 4 MG/2 ML VIAL IVP ONE; -ONDANSETRON 4 MG/2 ML VIAL IVP PRN; -ROPIVACAINE 246.25 MG, EPINEPHrine 0.5 MG, KETOROLAC 30 MG, cloNIDine HCL/PF 80 MCG, WA... MISCELLANE ONE; -SCOPOLAMINE 1.5MG/72HR PATCH TRANSDERM ONE; -TRANEXAMIC ACID 1,000 MG in SODIUM CHLORIDE 0.9% 100 ML IVPB ONE; -diazePAM 5 MG TAB PO PRN; -fentaNYL (PF) 50 MCG/ML 2 ML AMP IVP PRN; -hydrOXYzine pamoate 25 MG CAP PO PRN
[2021-11-28] MEDS ORDERED: LIDOCAINE 1% (10MG/ML) FOR IV START INTRADERMA ONE (09:01)
[2021-11-28 09:02] VITALS: TEMP 96.9
[2021-11-28] MEDS ORDERED: PROPOFOL 10 MG/ML 20 ML VIAL IV ONE (09:42)
[2021-11-28] MEDS ORDERED: LIDOCAINE 2% INJ 20 MG/ML (2 ML VIAL) ONE (09:42)
--- NOTE | 2021-11-28 10:00 | P.PCN ---
Date of Procedure: 11/28/21 Procedure(s) Performed: BRIEF HISTORY: Patient is a 66-year-old pleasant white female scheduled for an elective colonoscopy as a part of screening for colon cancer for positive cologuard. PROCEDURE PERFORMED: Colonoscopy. PREOPERATIVE DIAGNOSIS: Screening for colon cancer/positive cologuard. IV sedation per Anesthesia. PROCEDURE: After informed consent was obtained, the patient, was brought into the endoscopy unit. IV sedation was administered by Anesthesia under continuous monitoring. Digital rectal examination was normal. Initially the Olympus CF-160 flexible video colonoscope was then inserted in the rectum, gradually advanced into the cecum without any difficulty. Careful examination was performed as the scope was gradually being withdrawn. Ileocecal valve and the appendiceal orifice were visualized and appeared normal. Prep was excellent. Mucosa of the cecum, ascending colon, transverse colon, descending colon, sigmoid colon, and rectum appeared normal. Retroflexion was performed in the rectum and no lesions were seen. The patient tolerated the procedure well. IMPRESSION: Normal-appearing colon from rectum to cecum no evidence of colorectal neoplasia scattered sigmoid diverticulosis. . RECOMMENDATIONS: Findings of this examination were discussed with the patient as well as a family. She was advised to have a repeat screening colonoscopy in 10 years..
[2021-11-28 10:07] VITALS: BP 134/77; PULSE 66; RESP 16
== END 2021-11-28 10:38 | disposition home or self-care (01) ==
LOC: ORWHC2ENDO 08:29
PROVIDERS: ATTEND Internal Medicine Gastroenterology
DX: K57.30 Diverticulosis of large intestine without perforation or abscess without bleeding (principal); R19.5 Other fecal abnormalities; Z91.048 Other nonmedicinal substance allergy status; J45.909 Unspecified asthma, uncomplicated; G47.33 Obstructive sleep apnea (adult) (pediatric); K21.9 Gastro-esophageal reflux disease without esophagitis; Z79.1 Long term (current) use of non-steroidal anti-inflammatories (NSAID); Z79.899 Other long term (current) drug therapy
CPT/HCPCS: 45378; J2704; J2001

== ENCOUNTER → 2021-12-02 | Outpatient (CLI) | payer MEDICARE, BC ==
--- NOTE | 2021-12-02 13:32 | P.PN ---
Subjective Progress Note Date: 12/02/21 66-year-old female patient is being seen for a [facility]up [facility]. The patient recently became 66 and the patient got switched to Medicare and based on insurance guidelines, the diagnosis is to be confirmed for ongoing treatment only. Her supplies. The patient's last study was done in 2007 and the patient is currently using a BiPAP unit which is set at a pressure of 10/6 cm of water and she is using the airfit F30 medium-sized fullface mask. Her treatment has been successful over the years. The patient has gained weight and since her last evaluation in 2020, the patient has gained approximately 13 pounds. Her current body weight is 277. Her machine is functional. She is wearing the machine every night. Had machine usage for more than 4 hours more than 95% of the time. Her use of the machine for more than 4 hours 29 out of 30. She's been averaging about 7.2 hours of BiPAP use overnight and the leak is in order of 28 L per minute and the patient's generate tidal volume is 520 mL with a minute ventilation of 7.3 L and her AHI is down to 1.2. The patient is using a fullface mask. No nighttime arousals for shortness of breath or chest pain. No morning hypersomnia or sleepiness. Her current [place] score is at 3. No new onset comorbid conditions. No chest pain. No angina. No palpitation. No heartburn. No difficulties while driving and the patient does not follow Herminio she has not been involved in a motor vehicle accident because of feeling drowsy or sleepy. Objective - Exam BP is 135/92 with a pulse of 74 and respiration of 16 and a temperature 97.2. Oxygen saturations 96% on room air oxygen. Weight is 276 pounds. [place] score is at 3. Gen. appearance the patient is obese, comfortable no acute distress.The patient appeared well nourished and normally developed. Vital signs as documented. Head exam is unremarkable. No scleral icterus or corneal arcus noted. Neck is without jugular venous distension, thyromegaly, or carotid bruits. Carotid upstrokes are brisk bilaterally. Lungs are clear to auscultation and percussion. Cardiac exam reveals the PMI to be normally sized and situated. Rhythm is regular. First and second heart sounds normal. No murmurs, rubs or gallops. Abdominal exam reveals normal bowel sounds, no masses, no organomegaly and no aortic enlargement. Extremities are nonedematous and both femoral and pedal pulses are normal.Examination of the skin revealed no evidence of significant rashes, suspicious appearing nevi or other concerning lesions.Neurologically, the patient is awake and alert and the patient does not have any focal neurological deficit. Cranial nerves are essentially intact. Assessment and Plan Plan: Symptomatic obstructive sleep apnea maintained on BiPAP at a pressure of 10/6 cm of water, compliant, and the patient has a functioning ResMed unit. Chronic hypersomnia, improved with BiPAP therapy current a poor scores a 3 Obesity with an elevated weight of 276 pounds Snoring, recovered while on BiPAP treatment Degenerative arthritis Chronic environmental ALLERGIES Plan Continue BiPAP therapy the same level of pressure. No need for any pressure adjustments The patient's supplies is going to be refilled and the patient takes be incised airfit F30 fullface mask We'll order a home sleep study to reestablish diagnosis and this is going to be needed for ongoing CPAP therapy and supply refills Encourage efforts to lose weight Maintained regular sleep schedule Sleep hygiene measures are optimal We'll continue to follow
== END ==
LOC: SLEEP 13:02
PROVIDERS: ATTEND Internal Medicine Critical Care Medicine
DX: G47.33 Obstructive sleep apnea (adult) (pediatric) (principal); E66.9 Obesity, unspecified; M19.90 Unspecified osteoarthritis, unspecified site; Z99.89 Dependence on other enabling machines and devices

== ENCOUNTER → 2022-02-09 | Outpatient (CLI) | payer MEDICARE, BC ==
[2022-02-09 17:17] LABS: African American GFR (CKD) >90 (>60 ml/min/1.73 sqM); Blood Urea Nitrogen 16 mg/dL (7-17); Non-African American GFR(CKD) >90 (>60 ml/min/1.73 sqM)
--- NOTE | 2022-02-09 17:55 | CT ---
EXAMINATION TYPE: CT angio chest CT DLP: 842.3 mGycm, Automated exposure control for dose reduction was used. DATE OF EXAM: 02/09/2022 5:41 PM COMPARISON: Chest radiograph from same day. Multiple CTs of the chest with most recent on 7021 CLINICAL INDICATION:Female, 66 years old with history of R06.02 shortness of breath; shortness of macrina ath, burning in lungs since pt had COVID 1 year ago. TECHNIQUE/CONTRAST: CTA scan of the thorax is performed with IV Contrast, patient injected with 80ML mL of Isovue 370, pu lmonary embolism protocol. MIP images are created and reviewed. FINDINGS: Pulmonary Artery: There is no evidence for a central filling defect within the pulmonary vasculature to suggest acute pulmonary embolism. Limited evaluation of the segmental and subsegmental branches se condary to bolus timing. The pulmonary artery is of normal size. Lungs/Pleura: Scattered airspace opacities are seen throughout the lungs somewhat groundglass streaky interstitial pattern. No evidence of focal consolidation, pleural effusion or pneumothorax. Airway: Large airways are patent. Heart: Heart is within normal limits for size.. Vasculature: No evidence of aortic aneurysm. Mediastinum: No gross evidence of adenopathy. Small hiatal hernia is present. Musculoskeletal: No acute osseous abnormalities Soft Tissues: Unremarkable. Lower neck: No significant findings. Upper Abdomen: Diffuse low-attenuation to the liver parenchyma. IMPRESSION: 1. No evidence of central pulmonary embolism. Limited evaluation of the lobar, segmental and subsegme ntal branches. 2. Scattered pulmonary opacities are seen dating back to 2019 and likely represent sequela prior infe ction. 3. Hepatic steatosis.
== END | disposition home or self-care (01) ==
LOC: RADCTMAIN 16:28
PROVIDERS: ATTEND Internal Medicine
DX: K76.0 Fatty (change of) liver, not elsewhere classified (principal); R91.8 Other nonspecific abnormal finding of lung field; R06.02 Shortness of breath
CPT/HCPCS: 82565; 84520; 71275; 36415; Q9967

== ENCOUNTER → 2022-10-14 | Outpatient (CLI) | payer MEDICARE, BC ==
--- NOTE | 2022-10-15 00:14 | BD ---
EXAMINATION TYPE: Axial Bone Density DATE OF EXAM: 10/14/2022 CLINICAL HISTORY: 67 years old Female. ICD-10 CODE: Z78.0 ASYMPTOMATIC MENOPAUSAL STATE Height: 64 in Weight: 271 lbs FRAX RISK QUESTIONS: Family History (Parent hip fracture): yes mother RISK FACTORS HISTORY OF: Surgery to Spine/Hip(right): l-spine fusion 2005; rt hip replacement 2019 Family History of Osteoporosis: yes mother and sister Active: limited Diet low in dairy products/other sources of calcium: yes Postmenopausal woman: age 51 Lost more than 2 inches in height since high school: yes 3" MEDICATIONS: Additional Medications: calcium, vit d, acid reflux meds, allergy meds, urine meds, EXAM MEASUREMENTS: Bone mineral densitometry was performed using the No Chains System. pt had l-spine fusion 2005 pt had rt hip replacement 2019 Bone mineral density about the L hip (g/cm2): 0.933 T Score values are as follows: -----L Neck: -2.1 -----L Total: -0.6 Z Score values are as follows: -----L Neck: -1.4 -----L Total: -0.2 Bone mineral density has: Increased 5.2% since study of: 10/24/2014 Bone mineral density about the L Wrist (g/cm2): 0.787 T Score values are as follows: -----Dist. R+U: -1.3 -----Prox. R+U: -1.0 -----Radius total: -1.2 Z Score values are as follows: -----Dist. R+U: 0.2 -----Prox. R+U: 0.4 -----Radius total: 0.3 Bone mineral density baseline FRAX%s: The graph provided illustrates a 17.4% chance for a major osteoporotic fx and a 1.8% chance f or the hips probability for fx in 10 years time. IMPRESSION: Osteopenia (T Score between -2.5 and -1). There is slightly increased risk of fracture and the patient may be considered for treatment. Re-Screen 2-5 years. NOTE: T-SCORE=SD OF THE YOUNG ADULT MEAN.
--- NOTE | 2022-10-15 07:26 | MM ---
Reason for Exam: Screening (asymptomatic). Last screening mammogram was performed 12 month(s) ago. Patient History: Menarche at age 14. First Full-Term at age 17. Postmenopausal. Patient has history of breast feeding. Risk Values: Haydee 5 year model risk: 1.2%. NCI Lifetime model risk: 4.4%. Prior Study Comparison: 06/10/2015 Bilateral Screening Mammogram, [facility]. 04/27/2017 Bilateral Screening Mammogram, [facility] 05/04/2018 Bilateral Screening Mammogram, [facility]. 06/13/2020 Bilateral Screening Mammogram, [facility]. 10/07/2021 Bilateral MG 3D screening mammo w/cad, [facility]. Tissue Density: The breast tissue is almost entirely fat. Findings: Analyzed By CAD. There is no suspicious group of microcalcifications or new suspicious mass in either breast. Overall Assessment: Negative, BI-RAD 1 Management: Screening Mammogram of both breasts in [address] [facility] will attempt to contact patient to return for supplemental views and ultrasound if indicated. Patient should continue monthly self-breast exams. A clinical breast exam by your physician is recommended on an annual basis. This exam should not preclude additional follow-up of suspicious palpable abnormalities. Note on Haydee scores and lifetime risk: 1. A [place] score greater than 3% is considered moderate risk. If this is the case, consider specialist referral to assess eligibility for a risk reducing agent. 2. If overall lifetime risk for the development of breast cancer is 20% or higher, the patient may qualify for future screening with alternating mammogram and breast MRI. Electronically signed and approved by: Magdiel Shoemaker DO
== END | disposition home or self-care (01) ==
LOC: RADMAMWWP 13:33
PROVIDERS: ATTEND Family Medicine
DX: Z12.31 Encounter for screening mammogram for malignant neoplasm of breast (principal); M85.89 Other specified disorders of bone density and structure, multiple sites; Z78.0 Asymptomatic menopausal state
CPT/HCPCS: 77063; 77067; 77080

== ENCOUNTER → 2023-11-03 | Outpatient (CLI) | payer MEDICARE, BC ==
--- NOTE | 2023-11-07 11:21 | MM ---
Reason for Exam: Screening (asymptomatic). Last mammogram was performed 1 year(s) and 1 month(s) ago. Patient History: Menarche at age 14. First Full-Term at age 17. Postmenopausal. Patient has history of breast feeding. Risk Values: Haydee 5 year model risk: 1.2%. NCI Lifetime model risk: 4.2%. Prior Study Comparison: 06/13/2020 Bilateral Screening Mammogram, [facility]. 10/07/2021 Bilateral MG 3D screening mammo w/cad, [facility]. 10/14/2022 Bilateral MG 3D screening mammo w/cad, [facility]. Tissue Density: The breasts are almost entirely fatty. Findings: Analyzed By CAD. Right breast: There is no suspicious group of microcalcifications or new suspicious mass. Left breast: There is no suspicious group of microcalcifications or new suspicious mass. Overall Assessment: Negative, BI-RAD 1 Management: Screening Mammogram of both breasts in [address] [facility] will attempt to contact patient to return for supplemental views and ultrasound if indicated. Patient should continue monthly self-breast exams. A clinical breast exam by your physician is recommended on an annual basis. This exam should not preclude additional follow-up of suspicious palpable abnormalities. Note on Haydee scores and lifetime risk: 1. A Haydee score greater than 3% is considered moderate risk. If this is the case, consider specialist referral to assess eligibility for a risk reducing agent. 2. If overall lifetime risk for the development of breast cancer is 20% or higher, the patient may qualify for future screening with alternating mammogram and breast MRI. Electronically signed and approved by: Magdiel Shoemaker DO
== END | disposition home or self-care (01) ==
LOC: RADMAMWWP 13:40
PROVIDERS: ATTEND Family Medicine
DX: Z12.31 Encounter for screening mammogram for malignant neoplasm of breast
CPT/HCPCS: 77063; 77067